=== PATIENT | female | born 1965 | race Caucasian/White ===

== ENCOUNTER 2018-11-05 10:38 | Emergency (ER) | payer OTHER ==
[~2018-11-05] VITALS: Ht 162.6 cm; Wt 83.0 kg
[2018-11-05 10:42] VITALS: BP 141/79
--- NOTE | 2018-11-05 10:55 | NUR ---
Patient transferred to bed 9 via wheelchair by [facility] after providing a urine specimen. RN evaluating patient at bedside.
--- NOTE | 2018-11-05 11:03 | NUR ---
PATIENT PRESENTS TO ED WITH THE CHIEF C/O LOWER BACK PAIN THAT STARTED ON SATURDAY. PT WAS TAKING TYLENOL AND IBUPROFEN W/O RELIEF. PT STATED SHE HAS HARD TIME WALKING SINCE PAIN STRTEDDENIES RECENT BACK INJUEY OR FALL. DENIES HX OF BACK SURGERY. NO BURNING OR FREQUENCY URINATION. DENIES N/V/D; SKIN IS PINK/WARM/DRY; AAOX4.PT DENIES ANY FEVER, CP, SOB, OR COUGH AT THIS TIME; PATIENT STATES PAIN OF 10/10 AT THIS TIME; VSS; PATIENT POSITIONED FOR COMFORT; HOB ELEVATED; BEDRAILS UP X2; BED DOWN. ER MD MADE AWARE OF PT STATUS.
--- NOTE | 2018-11-05 11:03 | NUR ---
Dr. Rodriguez evaluating patient at bedside.
--- NOTE | 2018-11-05 11:09 | NUR ---
PT BEING SEEN BY DR. WELCH.
[2018-11-05] MEDS ORDERED: MORPHINE SULFATE 4 MG/ML SYR IM ONE (11:10)
[2018-11-05] MEDS ORDERED: DIAZEPAM 5 MG TAB PO ONE (11:10)
[2018-11-05] MEDS ORDERED: ONDANSETRON 4 MG ODT PO ONE (11:10)
--- NOTE | 2018-11-05 11:45 | NUR ---
PT VERBALIZED DECREASED PAIN. WALKED BEDSIDE WITHOUT ASISTANCE.
[2018-11-05 11:59] VITALS: BP 141/79
--- NOTE | 2018-11-05 11:59 | NUR ---
Patient discharged with v/s stable. Written and verbal after care instructions given and explained. Patient alert, oriented and verbalized understanding of instructions. Ambulatory with steady gait. All questions addressed prior to discharge. ID band removed. Patient advised to follow up with PMD. Rx of ZOFRAN, MOTRIN, VALIUM, NORCO given. Patient educated on indication of medication including possible reaction and side effects. Opportunity to ask questions provided and answered.
== END 2018-11-05 11:59 | disposition home or self-care (01) ==
LOC: MED 10:38
DX: M54.5 Low back pain (principal); E11.9 Type 2 diabetes mellitus without complications; I10 Essential (primary) hypertension
CPT/HCPCS: 81002; 81025; 96372; 99283; J2270; Q0162

== ENCOUNTER 2019-06-28 17:12 | Emergency (ER) | payer MEDICAID, OTHER ==
[~2019-06-28] VITALS: Ht 165.1 cm; Wt 87.1 kg
[2019-06-28 17:24] VITALS: BP 125/53
[2019-06-28] MEDS: KETOROLAC 30 MG/ML VIAL IM ONE (17:48)
[2019-06-28] MEDS: CYCLOBENZAPRINE 10 MG TAB PO ONE (17:48)
[2019-06-28 18:08] VITALS: BP 125/53
== END 2019-06-28 18:08 | disposition home or self-care (01) ==
LOC: MED 17:12
DX: M54.42 Lumbago with sciatica, left side (principal); M54.41 Lumbago with sciatica, right side; I10 Essential (primary) hypertension; E11.9 Type 2 diabetes mellitus without complications; Z87.39 Personal history of other diseases of the musculoskeletal system and connective tissue
CPT/HCPCS: 99282; J1885

== ENCOUNTER 2019-07-01 18:21 | Emergency (ER) | payer MEDICAID ==
[~2019-07-01] VITALS: Ht 165.1 cm; Wt 82.6 kg
[2019-07-01 18:28] VITALS: BP 129/70
--- NOTE | 2019-07-01 18:35 | NUR ---
BIB SELF. AAO X4 PT RETURNING FOR AN EXTENSION OFF WORK. SHE WAS SEEN HERE AT [facility] ON 06/28/19 AND WAS GIVEN A NOTE FOR 2 DAYS OFF WORK FOR SCIATICA PAIN. PT STATES THE MEDICATIONS SHES RECEIVED ARE HELPING HER AND HER PAIN HAS BEEN CONTROLLED, BUT SHE WOULD LIKE TO GET A NOTE TO EXCUSE HER FROM WORK FOR 2-3 MORE DAYS SO SHE CAN BE "COMPLETELY BETTER AND NOT MAKE IT WORSE". PT HAS STEADY GAIT. ER TO EVALUATE PT.
--- NOTE | 2019-07-01 18:45 | NUR ---
JOHNNA DIALLO AT BEDSIDE FOR PT EVALUATION
[2019-07-01 18:49] VITALS: BP 129/70
--- NOTE | 2019-07-01 18:49 | NUR ---
Patient discharged with v/s stable. Written and verbal after care instructions given and explained. Patient alert, oriented and verbalized understanding of instructions. Ambulatory with steady gait. All questions addressed prior to discharge. ID band removed. Patient advised to follow up with PMD. Opportunity to ask questions provided and answered.
--- NOTE | 2019-07-01 18:49 | NUR ---
Note richaone in EDM - 07/01/19 at 1917 by [facility] SELF. AAJorge X4 PT RETURNING FOR AN EXTENSION OFF WORK. SHE WAS SEEN HERE AT [facility] ON 06/28/19 AND WAS GIVEN A NOTE FOR 2 DAYS OFF WORK FOR SCIATICA PAIN. PT STATES THE MEDICATIONS SHES RECEIVED ARE HELPING HER AND HER PAIN HAS BEEN CONTROLLED, BUT SHE WOULD LIKE TO GET A NOTE TO EXCUSE HER FROM WORK FOR 2-3 MORE DAYS SO SHE CAN BE "COMPLETELY BETTER AND NOT MAKE IT WORSE". PT HAS STEADY GAIT. ER TO EVALUATE PT.
== END 2019-07-01 18:49 | disposition home or self-care (01) ==
LOC: MED 18:21
DX: M54.41 Lumbago with sciatica, right side (principal); I10 Essential (primary) hypertension; E11.9 Type 2 diabetes mellitus without complications; E78.5 Hyperlipidemia, unspecified
CPT/HCPCS: 99281

== ENCOUNTER 2022-08-12 15:53 | Emergency (ER) | payer MEDICAID ==
[~2022-08-12] VITALS: Ht 165.1 cm; Wt 74.4 kg
[2022-08-12 16:00] VITALS: BP 173/82
[2022-08-12] MEDS ORDERED: KETOROLAC 30 MG/ML VIAL IM ONE (18:25)
--- NOTE | 2022-08-12 19:08 | NUR ---
56/F PRESENTS TO ED WITH C/O RIGHT LEG PAIN SINCE SATURDAY, DENIES INJURY OR TRAUMA. STATES SHE TOOK TYLENOL AND MOTRIN WITH ONLY MILD RELIEF. PATIENT AMBULATORY WITH USE OF WALKER UPON ARRIVAL.
[2022-08-12] MEDS ORDERED: IBUP-2213 PO (21:15)
--- NOTE | 2022-08-12 21:54 | NUR ---
d/c with VSS. d/c education given. opportunity to ask questions given and answered. rx of motrin given.
[2022-08-12 21:55] VITALS: BP 125/69
== END 2022-08-12 21:54 | disposition home or self-care (01) ==
LOC: MED 15:53
DX: S83.91XA Sprain of unspecified site of right knee, initial encounter (principal); M25.551 Pain in right hip; Z79.1 Long term (current) use of non-steroidal anti-inflammatories (NSAID); W18.39XA Other fall on same level, initial encounter; Y93.01 Activity, walking, marching and hiking; Y92.89 Other specified places as the place of occurrence of the external cause; Y99.8 Other external cause status
CPT/HCPCS: 73502; 73562; 96372; 99284; J1885